=== PATIENT | female | born 1975 | race Caucasian/White ===

== ENCOUNTER 2020-09-25 22:16 | Emergency (ER) | payer BC ==
[2020-09-25 22:24] VITALS: BP 127/90; PULSE 93; TEMP 97.8; BMI 26.6
[2020-09-25 22:53] LABS: HCG,QUALITATIVE URINE Negative
[2020-09-25] MEDS ORDERED: ACETAMINOPHEN 500 MG TABLET (FP) PO ONE (23:33)
[2020-09-25 23:42] LABS: URINE APPEARANCE CLEAR; URINE BILIRUBIN NEGATIVE (NEGATIVE); URINE COLOR YELLOW; URINE GLUCOSE (UA) NEGATIVE (NEGATIVE); URINE KETONE NEGATIVE (NEGATIVE)
[2020-09-25 23:43] LABS: URINE NITRITE NEGATIVE (NEGATIVE); URINE PROTEIN NEGATIVE (NEGATIVE); URINE UROBILINOGEN 0.2 mg/dL (0.2-1.0)
[2020-09-25 23:48] LABS: EPI CELLS 15 /uL (0-25.1); HYALINE CASTS 0 /uL (0-3.1); URINE BACTERIA 309 /uL (0-1359); URINE LEUK ESTERASE 2+ (NEGATIVE); URINE RBC 29 /uL (0-23.9); URINE WBC 20 /uL (0-25.8)
[2020-09-25] MEDS ORDERED: ACETAMINOPHEN 325 MG TABLET (FP) ONE (23:51)
[2020-09-25] MEDS ORDERED: SULFAMETHOXAZOLE/TRIMETHOPRIM 800MG/160MG D.S. TABLET PO ONE (23:53)
[2020-09-25] MEDS ORDERED: SULFAMETHOXAZOLE/TRIMETHOPRIM 800MG/160MG D.S. TABLET ONE (23:55)
== END 2020-09-26 00:02 | disposition left against medical advice (07) ==
LOC: JER 22:16
DX: R10.30 Lower abdominal pain, unspecified (principal)
CPT/HCPCS: 81003; 84703; 87077; 87086; 99283-25